=== PATIENT | male | born 1930 | race Caucasian/White ===

== ENCOUNTER 2016-10-15 11:46 | Emergency (ER) | payer OTHER, MEDICAID ==
[~2016-10-15] VITALS: Ht 152.4 cm; Wt 55.0 kg
[2016-10-15 11:50] VITALS: Ht 152.4 cm; Wt 55.0 kg
--- NOTE | 2016-10-15 11:51 | ERA ---
ER Documentation Chief Complaint Date/Time DATE: 10/15/16 TIME: 11:51 Chief Complaint Left inguinal hernia HPI The patient is a 86-year-old male, presenting to the ER because of chronic left inguinal hernia for more than 4 months that is usually reducible by the patient. The pain is worse today definitely came to the ER. However he was able to reduce in the ER himself. He denies fever, chills, neck pain, chest pain, abdominal pain, vomiting, dysuria, diarrhea, constipation. He does not drink, smokes socially Past medical history: Hypertension, dyslipidemia, CAD Past surgical history: Stent PCI ROS All systems reviewed and are negative except as per history of present illness. Medications Home Meds Reported Medications Lorazepam* (Lorazepam*) 0.5 Mg Tablet, 0.5 MG PO BID Y for ANXIETY, TAB 10/15/16 Atorvastatin Calcium (Atorvastatin Calcium) 10 Mg Tablet, 10 MG PO QHS, #30 TAB 10/15/16 Carvedilol* (Carvedilol*) 6.25 Mg Tablet, 6.25 MG PO BID, #60 TAB 10/15/16 Clopidogrel Bisulfate (Clopidogrel) 75 Mg Tablet, 75 MG PO DAILY, #30 TAB 10/15/16 Allergies Allergies: Coded Allergies: No Known Allergy (Unverified , 10/15/16) Physical Exam Vitals Vital Signs Date Time Temp Pulse Resp B/P Pulse Ox O2 Delivery O2 Flow Rate FiO2 10/15/16 14:06 98.3 82 16 126/88 100 10/15/16 11:50 98.1 88 18 138/91 100 Physical Exam Const: No acute distress. Head: Atraumatic. Eyes: Normal Conjunctiva. ENT: Normal External Ears, Nose and Mouth. Neck: Full range of motion. No meningismus. Resp: Clear to auscultation bilaterally. Cardio: Regular rate and rhythm, no murmurs. Abd: Soft, non distended, normal bowel sounds, non tender. Skin: No petechiae or rashes. Back: No midline or flank tenderness. Ext: No cyanosis, or edema. Moderat left inguinal hernia, reducible Neur: Awake and alert. No focal deficit Psych: Normal Mood and Affect. Result Diagram: 10/15/16 1214 10/15/16 1214 Results 24 hrs Laboratory Tests Test 10/15/16 12:14 10/15/16 13:42 Activated Partial Thromboplast Time 29.5Sec Alanine Aminotransferase (ALT/SGPT) 27IU/L Albumin 4.0g/dl Albumin/Globulin Ratio 0.95 Alkaline Phosphatase 129IU/L Anion Gap 20 Aspartate Amino Transf (AST/SGOT) 31IU/L Basophils # 0.010^3/ul Basophils % 0.3% Blood Urea Nitrogen 14mg/dl Calcium Level 9.5mg/dl Carbon Dioxide Level 24mmol/L Chloride Level 103mmol/L Creatinine 1.00mg/dl Direct Bilirubin 0.00mg/dl Eosinophils # 0.010^3/ul Eosinophils % 0.1% Globulin 4.20g/dl Glucose Level 139mg/dl Hematocrit 48.9% Hemoglobin 16.2g/dl INR International Normalized Ratio 1.02 Indirect Bilirubin 0.8mg/dl Lipase 41U/L Lymphocytes # 0.710^3/ul Lymphocytes % 6.8% Mean Corpuscular Hemoglobin 32.1pg Mean Corpuscular Hemoglobin Concent 33.1g/dl Mean Corpuscular Volume 96.8fl Mean Platelet Volume 10.3fl Monocytes # 0.410^3/ul Monocytes % 3.8% Neutrophils # 9.110^3/ul Neutrophils % 88.5% Nucleated Red Blood Cells # 0.010^3/ul Nucleated Red Blood Cells % 0.0/100WBC Platelet Count 96586^3/UL Potassium Level 4.6mmol/L Prothrombin Time 13.4Sec Prothrombin Time Ratio 1.0 Red Blood Count 5.0510^6/ul Red Cell Distribution Width 13.3% Sodium Level 142mmol/L Total Bilirubin 0.8mg/dl Total Protein 8.2g/dl White Blood Count 10.310^3/ul Bedside Urine Blood Trace-intact Bedside Urine Glucose (UA) Negative Bedside Urine Ketones (LAB) Trace Bedside Urine Leukocyte Esterase (L Negative Bedside Urine Nitrite (LAB) Negative Bedside Urine Protein (LAB) 3+ Bedside Urine pH (LAB) 6.0 Procedures/MDM [place] [id number] Radiology Main Line: [phone] DIAGNOSTIC IMAGING REPORT Patient: HAYDEE GILES : 1930 Age: 86 Sex: M MR #: [id number] DOS: 10/15/16 1156 Ordering MD: AMANDA BROWNE MD Location: E/R Room/Bed: PROCEDURE: CT Abdomen and Pelvis without contrast. CLINICAL INDICATION: Left lower quadrant abdominal pain. . Hernia. TECHNIQUE: CT scan of the abdomen and pelvis without contrast was performed on a multi-slice CT scanner. The patient was scanned without intravenous contrast. Coronal and sagittal reformatted images were obtained from the axial source images. Images were reviewed on a high-resolution PACS workstation. Total DLP = 545.1 mGy-cm. CTDIvol = 9.6 mGy. COMPARISON: None. FINDINGS: CT abdomen and pelvis: The lung bases are clear of infiltrates or effusions. There are mild emphysematous changes at the lung bases.. The heart size is mildly enlarged.. The liver is normal in size and density without focal mass or intrahepatic biliary dilatation. The spleen is normal in size and homogeneous in density. The pancreas as visualized is normal. The gallbladder shows no evidence of stones or distension . The adrenal glands are normal. There are multiple bilateral large renal cysts measuring up to 12 cm on the right and 7 cm on the left. There is no evidence of obstructive uropathy or urolithiasis. The stomach is partially collapsed, but is grossly unremarkable. The small bowels are slightly distended with fluid. There is a moderate left inguinal hernia containing nondistended small bowel loops and fluid.. The colon and rectum are normal. Fluid is seen in the right colon. There is no evidence of appendicitis or diverticulitis. The prostate is mildly enlarged.. The bladder is normal. There is trace free fluid in the pelvis. No abdominal or pelvic adenopathy, free air or mass. The aorta exhibits mild aneurysmal dilatation at the infrarenal portion measuring up to 3.4 cm diameter with calcific atherosclerosis . The osseous structures showing degenerative spondylosis of the spine. There is a mild retrolisthesis at the L2-3 level and anterolisthesis at the L4-5 level. There are no osteolytic or osteoblastic lesions identified.. The soft tissues are within normal limits. Lack of IV and oral contrast limits sensitivity of exam. IMPRESSION: 1. Mildly distended fluid-filled small bowels and right colon suggestive of enteritis. 2. Moderate left inguinal hernia containing nondistended small bowel loops and fluid. No evidence of bowel obstruction. 3. Multiple bilateral renal cysts. 4. Mild emphysematous changes of the lung bases. 5. Prostatomegaly. 6. Degenerate spondylosis of the spine with mild spondylolisthesis at the L2-3 and L4-5 levels. 7. Mild aneurysmal dilatation of the distal abdominal aorta measuring up to 3.4 cm in diameter. Associated calcific atherosclerosis of the aorta. RPTAT: TT .Janak Khan MD, MD Date Time Electronically viewed and signed by .Janak Khan MD, MD on 10/15/2016 12:46 .L/ CC: AMANDA BROWNE MD MEDICAL MAKING DECISION: The patient is a 86-year-old male, presenting to the ER because of chronic left inguinal hernia, reducible. The differential diagnoses considered include but are not limited to incarcerated/strangulated inguinal hernia, cholelithiasis, cholecystitis, cystitis, pancreatitis, hepatitis, gastritis, peptic ulcer disease, gastric ulcer, appendicitis, diverticulitis, cholangitis, choledocholithiasis, partial small bowel obstruction. Departure Diagnosis: Primary Impression: Left inguinal hernia Additional Impression: Abdominal aortic aneurysm Condition: Good Comments I discussed the findings with the patient. I advised the patient to follow-up with the primary physician in about 1-2 days, sooner if needed and return if any concern. AMANDA BROWNE MD Oct 15, 2016 11:51
[2016-10-15] MEDS ORDERED: CARV6.2579 PO (12:10)
[2016-10-15] MEDS ORDERED: ATOR10TA65 PO (12:10)
[2016-10-15] MEDS ORDERED: CLOP75TA27 PO (12:10)
[2016-10-15] MEDS ORDERED: LORA0.5T PO (12:11)
[2016-10-15 12:20] LABS: ADD SCAN DIFF NO
[2016-10-15 12:24] LABS: BASOPHILS % 0.3 % (0.0-2.0); EOSINOPHILS % 0.1 % (0.0-7.0); HEMATOCRIT 48.9 % (42.0-52.0); HEMOGLOBIN 16.2 g/dl (14.0-18.0); LYMPHOCYTES # 0.7 10^3/ul (0.8-2.9); LYMPHOCYTES % 6.8 % (15.0-51.0); MEAN CORPUSCULAR HEMOGLOBIN 32.1 pg (29.0-33.0); MEAN CORPUSCULAR HGB CONC 33.1 g/dl (32.0-37.0); MEAN CORPUSCULAR VOLUME 96.8 fl (82.0-101.0); MEAN PLATELET VOLUME 10.3 fl (7.4-10.4); MONOCYTE # 0.4 10^3/ul (0.3-0.9); MONOCYTES % 3.8 % (0.0-11.0); NEUTROPHIL # 9.1 10^3/ul (1.6-7.5); NEUTROPHILS % 88.5 % (39.0-77.0); PLATELET COUNT 149 10^3/UL (140-415); RED BLOOD COUNT 5.05 10^6/ul (4.70-6.10); RED CELL DISTRIBUTION WIDTH 13.3 % (11.5-14.5); WHITE BLOOD COUNT 10.3 10^3/ul (4.8-10.8)
[2016-10-15 12:38] LABS: POTASSIUM 4.6 mmol/L (3.5-5.1)
[2016-10-15 12:40] LABS: BILIRUBIN,INDIRECT 0.8 mg/dl (0-1.1); BILIRUBIN,TOTAL 0.8 mg/dl (0.2-1.3)
[2016-10-15 12:41] LABS: CALCIUM 9.5 mg/dl (8.4-10.2)
[2016-10-15 12:42] LABS: INR 1.02; PROTIME 13.4 Sec (12.2-14.2)
[2016-10-15 12:44] LABS: PARTIAL THROMBOPLASTIN TIME 29.5 Sec (25.0-35.0)
--- NOTE | 2016-10-15 12:47 | RADRPT ---
PROCEDURE: CT Abdomen and Pelvis without contrast. CLINICAL INDICATION: Left lower quadrant abdominal pain. . Hernia. TECHNIQUE: CT scan of the abdomen and pelvis without contrast was performed on a multi-slice CT [facility]. The patient was scanned without intravenous contrast. Coronal and sagittal reformatted imag es were obtained from the axial source images. [facility] Total DLP = 545.1 mGy-cm. CTDIvol = 9.6 mGy. COMPARISON: None. FINDINGS: CT abdomen and pelvis: The lung bases are clear of infiltrates or effusions. There are mild emphysematous changes at the l dwight bases.. The heart size is mildly enlarged.. The liver is normal in size and density without fo christian mass or intrahepatic biliary dilatation. The spleen is normal in size and homogeneous in densit y. The pancreas as visualized is normal. The gallbladder shows no evidence of stones or distensi on . The adrenal glands are normal. There are multiple bilateral large renal cysts measuring up to 12 cm on the right and 7 cm on the left. There is no evidence of obstructive uropathy or urolithia sis. The stomach is partially collapsed, but is grossly unremarkable. The small bowels are slightly diste nded with fluid. There is a moderate left inguinal hernia containing nondistended small bowel loops and fluid.. The colon and rectum are normal. Fluid is seen in the right colon. There is no evidenc e of appendicitis or diverticulitis. The prostate is mildly enlarged.. The bladder is normal. There is trace free fluid in the pelvis. No abdominal or pelvic adenopathy, free air or mass. The aorta exhibits mild aneurysmal dilatation at the infrarenal portion measuring up to 3.[address] with calcific atherosclerosis . The osseous structures showing degenerative spondylosis of the spine. There is a mild retrolisthesis at the L2-3 level and anterolisthesis at the L4-5 level. The re are no osteolytic or osteoblastic lesions identified.. The soft tissues are within normal limits . Lack of IV and oral contrast limits sensitivity of exam. IMPRESSION: 1. Mildly distended fluid-filled small bowels and right colon suggestive of enteritis. 2. Moderate left inguinal hernia containing nondistended small bowel loops and fluid. No evidence o f bowel obstruction. 3. Multiple bilateral renal cysts. 4. Mild emphysematous changes of the lung bases. 5. Prostatomegaly. 6. Degenerate spondylosis of the spine with mild spondylolisthesis at the L2-3 and L4-5 levels. 7. Mild aneurysmal dilatation of the distal abdominal aorta measuring up to 3.4 cm in diameter. As sociated calcific atherosclerosis of the aorta. RPTAT: TT .Janak Khan MD, MD Date Time Electronically viewed and signed by .Janak Khan MD, MD on 10/15/2016 12:46 .L/
[2016-10-15 13:40] LABS: URINE BLOOD (Dip) POC Trace-intact (NEGATIVE)
[2016-10-15 14:06] VITALS: BP 126/88; PULSE 82; RESP 16; TEMP 98.3
[2016-10-15 14:33] LABS: ALBUMIN/GLOBULIN RATIO 0.95; TOTAL PROTEIN 8.2 g/dl (6.1-8.1)
== END 2016-10-15 14:08 | disposition home or self-care (01) ==
LOC: E/R 11:46
DX: K40.90 Unilateral inguinal hernia, without obstruction or gangrene, not specified as recurrent (principal); I71.4 Abdominal aortic aneurysm, without rupture; I10 Essential (primary) hypertension; I25.10 Atherosclerotic heart disease of native coronary artery without angina pectoris; Z98.61 Coronary angioplasty status
CPT/HCPCS: 36415; 74176; 80053; 81003; 83690; 85025; 85610; 85730

== ENCOUNTER → 2016-10-18 | Emergency (ER) | payer OTHER, MEDICAID ==
[~2016-10-18] VITALS: Ht 162.6 cm; Wt 65.0 kg
[~2016-10-18] MED LIST: ATOR10TA65 PO; CARV6.2579 PO; CLOP75TA27 PO; LORA0.5T PO
[2016-10-18 15:04] VITALS: Ht 162.6 cm; Wt 65.0 kg
[2016-10-18 18:05] VITALS: BP 119/74; PULSE 75; RESP 16
== END | disposition left against medical advice (07) ==
LOC: E/R 14:53
DX: Z53.21 Procedure and treatment not carried out due to patient leaving prior to being seen by health care provider (principal)

== ENCOUNTER 2017-11-01 09:17 | Inpatient (IN) | END 2017-11-04 20:49 | disposition home health service (06) | DRG 291 ==